=== PATIENT | male | born 1980 | race Caucasian/White ===

== ENCOUNTER 2016-10-20 19:05 | Emergency (ER) | payer SELFPAY ==
[~2016-10-20] VITALS: Ht 182.9 cm; Wt 106.0 kg
[2016-10-20 19:10] VITALS: BP 141/89
[2016-10-20] MEDS ORDERED: CARBAMAZEPIN200 MG PO (19:19)
[2016-10-20] MEDS ORDERED: LORTAB 10-325 M1 TAB PO (19:45)
[2016-10-20] MEDS ORDERED: FLOXIN OTIC0.3 % AS (19:45)
[2016-10-20] MEDS ORDERED: AMOX/K CLAV875 M1 PO (19:45)
[2016-10-20] MEDS ORDERED: CIPROFLOXACN500 MG PO (19:46)
== END 2016-10-20 19:54 | disposition home or self-care (01) | DRG 153 ==
LOC: ED 19:05
DX: H66.92 Otitis media, unspecified, left ear (principal); B96.5 Pseudomonas (aeruginosa) (mallei) (pseudomallei) as the cause of diseases classified elsewhere; G40.909 Epilepsy, unspecified, not intractable, without status epilepticus; F17.210 Nicotine dependence, cigarettes, uncomplicated

== ENCOUNTER 2017-06-30 23:27 | Emergency (ER) | payer SELFPAY ==
[~2017-06-30] VITALS: Ht 182.9 cm; Wt 109.1 kg
[~2017-06-30 23:27] MED LIST: AMOX/K CLAV875 M1 PO; CARBAMAZEPIN200 MG PO; CIPROFLOXACN500 MG PO; FLOXIN OTIC0.3 % AS; LORTAB 10-325 M1 TAB PO
[2017-06-30 23:58] LABS: HEMATOCRIT 48.5 % (39.0-50.0); HEMOGLOBIN 17.4 g/dl (14.0-18.0); IMMATURE GRANULOCYTES 0.3 % (0.0-1.0); MEAN CELL VOLUME 83.2 fL CALC (80.0-100.0); MEAN CORPUSCULAR HGB 29.8 pG CALC (26.0-32.0); MEAN CORPUSCULAR HGB CONC 35.9 g/L CALC (32.0-36.0); NEUT# 8.96 thou/uL (1.82-7.42); RED BLOOD COUNT 5.83 mill/uL (4.70-6.10); RED CELL DISTRI WIDTH 11.8 % (11.5-15.5)
[2017-07-01 00:12] LABS: ALBUMIN 5.1 g/dL (3.2-5.0); ALKALINE PHOSPHATASE 129 u/l (38-126); ANION GAP 22 (6-22 (CALC)); BILIRUBIN, TOTAL 0.4 mg/dL (0.0-1.4); BUN 18 mg/dL (9-20); BUN/CREATININE RATIO 17 (12-20 (CALC)); CARBON DIOXIDE 23 mmol/l (22-30); CHLORIDE 101 mmol/l (95-108); CREATININE 1.1 mg/dL (0.7-1.3); GFR > 60 ML/MIN (>=60 (CALC)); GFR FOR AFR.AMER. > 60 ML/MIN (>=60 (CALC)); LIPASE 114 u/l (23-300); POTASSIUM 4.4 mmol/l (3.5-5.1); SGOT/AST 29 u/l (17-59); SGPT/ALT 33 u/l (21-72); SODIUM 141 mmol/l (137-146); TOTAL PROTEIN 8.8 g/dL (6.3-8.2)
[2017-07-01] MEDS ORDERED: BENTYL10 MG PO (04:04)
[2017-07-01] MEDS ORDERED: ZOFRAN4 MG/TAB PO (04:04)
[2017-07-01 04:11] VITALS: BP 100/60
== END 2017-07-01 04:37 | disposition home or self-care (01) | DRG 392 ==
LOC: ED 23:27
PROVIDERS: Emergency Medicine
DX: K52.9 Noninfective gastroenteritis and colitis, unspecified (principal); F17.210 Nicotine dependence, cigarettes, uncomplicated